=== PATIENT | male | born 1960 | race Caucasian/White ===

== ENCOUNTER 2020-08-30 12:07 | Emergency (ER) | payer MEDICAID ==
[~2020-08-30] VITALS: Ht 175.3 cm; Wt 95.7 kg
[2020-08-30 12:15] VITALS: BP 128/69
--- NOTE | 2020-08-30 12:28 | NUR ---
Patient discharged to home in stable condition. Written and verbal after care instructions given. Patient verbalizes understanding of instruction.
== END 2020-08-30 12:28 | disposition home or self-care (01) ==
LOC: ER 12:11
DX: N49.8 Inflammatory disorders of other specified male genital organs (principal); I10 Essential (primary) hypertension; M10.9 Gout, unspecified

== ENCOUNTER 2020-09-18 23:30 | Emergency (ER) | payer MEDICAID ==
[~2020-09-18] VITALS: Ht 172.7 cm; Wt 90.7 kg
[2020-09-18 23:41] VITALS: BP 127/73
[2020-09-18] MEDS ORDERED: TDAP [DIPH/PERTUSSIS/TET] 0.5 ML VIAL IM ONE (23:50)
[2020-09-19] MEDS ORDERED: TDAP [DIPH/PERTUSSIS/TET] 0.5 ML VIAL IM ONE
== END 2020-09-19 00:03 | disposition home or self-care (01) ==
LOC: ER 23:33
DX: S81.802A Unspecified open wound, left lower leg, initial encounter (principal); I10 Essential (primary) hypertension; X58.XXXA Exposure to other specified factors, initial encounter; Y93.89 Activity, other specified; Y92.89 Other specified places as the place of occurrence of the external cause; Y99.8 Other external cause status
CPT/HCPCS: 90715